=== PATIENT | male | born 1985 | race Caucasian/White ===

== ENCOUNTER → 2016-07-31 | Outpatient (CLI) | payer OTHER ==
[2015-11-11 09:11] VITALS: BP 157/67
--- NOTE | 2016-07-31 10:14 | RAD ---
HISTORY: Disability, chronic low back pain Study: Three views lumbar spine Comparison: None Findings: Normal alignment of the lumbar spine is maintained. Vertebral body heights are preserved. Mild dis c space narrowing and spondylosis at L5-S1 is noted. The remaining disc spaces appear normal.No evid ence for acute fracture or subluxation. IMPRESSION: 1. Mild degenerative disc disease at L5-S1. Otherwise negative lumbar radiographs. Reported By:
== END ==
LOC: RAD 09:40
PROVIDERS: ATTEND Internal Medicine
DX: Z02.71 Encounter for disability determination (principal)
CPT/HCPCS: 72100

== ENCOUNTER → 2017-02-07 | Outpatient (CLI) | payer BC ==
[2015-11-11 09:11] VITALS: BP 157/67
--- NOTE | 2017-02-12 10:58 | RAD ---
HISTORY: Back pain Study: 3 views of the thoracic spine. Comparison: None Findings: Grossly normal alignment of the thoracic spine. The disk space height is maintained. Vertebral body heights are grossly maintained. IMPRESSION: 1. Unremarkable examination of the thoracic spine. Reported By:
--- NOTE | 2017-02-12 11:19 | RAD ---
HISTORY: Low back pain Study: 5 views of the lumbar spine Comparison: None. Findings: Normal alignment without subluxation or listhesis. Disk heights are maintained. Vertebral body heigh ts are normal. Sacroiliac joints are unremarkable. No evidence for acute fracture can be identified. IMPRESSION: 1. No acute abnormality of the lumbar spine. Reported By:
== END ==
LOC: RAD 09:46
PROVIDERS: ATTEND Nurse Practitioner Family
DX: M54.6 Pain in thoracic spine (principal); M54.5 Low back pain
CPT/HCPCS: 72072; 72110